=== PATIENT | female | born 2000 | race Two or more races ===

== ENCOUNTER 2021-04-18 07:45 | Emergency (ER) | payer MEDICAID ==
[~2021-04-18] VITALS: Ht 160 cm; Wt 54.4 kg
[2021-04-18 08:02] VITALS: BP 118/68
--- NOTE | 2021-04-18 08:16 | NUR ---
SWAB SPECIMENS OBTAINED FOR INFLUENZA AND SOLORZANO VIRUS PER MD ORDER.
--- NOTE | 2021-04-18 08:16 | NUR ---
DISCHARGE INSTRUCTIONS GIVEN BY
== END 2021-04-18 08:17 | disposition home or self-care (01) ==
LOC: ER 07:45
DX: J06.9 Acute upper respiratory infection, unspecified (principal); Z20.822 Contact with and (suspected) exposure to COVID-19
CPT/HCPCS: 87400; A4663